=== PATIENT | female | born 1970 | race Hispanic/Latino ===

== ENCOUNTER 2019-11-22 06:23 | Day surgery (SDC) | payer OTHER ==
[2019-11-18 18:43] LABS: BASOPHILS % (AUTO) 0.7 % (0.0-5.0); EOSINOPHILS % (AUTO) 2.7 % (0.0-8.0); HEMATOCRIT 40.9 % (36-48); LYMPHOCYTES % (AUTO) 23.8 % (21.0-51.0); MEAN CORPUSCULAR HEMOGLOBIN 28.6 pg (27.0-33.0); MEAN CORPUSCULAR HGB CONC 31.8 g/dL (32.0-36.0); MEAN CORPUSCULAR VOLUME 90.1 fL (79-99); MONOCYTES % (AUTO) 10.2 % (3.0-13.0); NEUTROPHILS % (AUTO) 62.4 % (40.0-77.0); PLATELET COUNT (AUTO) 232 K/uL (130-400); RED BLOOD CELL COUNT(AUTO) 4.54 MIL/uL (4.00-5.50); RED CELL DISTRIBUTION WIDTH 13.5 % (11.0-15.5); WHITE BLOOD COUNT (AUTO) 8.5 K/uL (4.8-10.8)
[2019-11-18 18:48] VITALS: BP 126/82
[2019-11-18 18:51] LABS: CREATININE 0.6 mg/dL (0.5-1.5); POTASSIUM 3.9 mmol/L (3.5-5.1)
[2019-11-22] VITALS (18 sets, daily range): BP systolic 106–127; BP diastolic 69–85
[~2019-11-22] VITALS: Ht 167.6 cm; Wt 109.8 kg
[~2019-11-22 06:23] MED LIST: LEVO137T2 PO; PROP80TA4 PO
[2019-11-22] MEDS ORDERED: BUPIVACAINE/PF 0.5% 30ML VIAL ONE (07:44)
[2019-11-22] MEDS ORDERED: GLYCOPYRROLATE 1 MG/5 ML SYRINGE ONE (07:50)
[2019-11-22] MEDS ORDERED: LIDOCAINE PF 2% 5ML ABBOJECT ONE ×2 (07:50→07:51)
[2019-11-22] MEDS ORDERED: SUCCINYLCHOLINE 200MG/10ML SYR ONE (07:50)
[2019-11-22] MEDS ORDERED: PROPOFOL 10 MG/ML 20ML VIAL IV ONE ×2 (07:51→09:42)
[2019-11-22] MEDS ORDERED: MIDAZOLAM HCL 1 MG/ML 2ML VIAL ONE (07:51)
[2019-11-22] MEDS ORDERED: FENTANYL CITRATE PF 50 MCG/1 ML 2ML VIAL ONE (07:51)
[2019-11-22] MEDS ORDERED: NEOSTIGMINE 5MG/5ML SYR IV ONE (07:51)
[2019-11-22] MEDS ORDERED: ROCURONIUM 10MG/1ML SYR 10 MG/ML ML ONE (07:51)
[2019-11-22] MEDS ORDERED: LACTATED RINGERS 1000ML 1,000 ML IV SCH (08:00)
[2019-11-22] MEDS: CEFAZOLIN SODIUM 1 GM VIAL IVP ONE ×2 (08:05→08:50)
[2019-11-22] MEDS ORDERED: ONDANSETRON HCL 4 MG/2 ML VIAL ONE (09:36)
== END 2019-11-22 11:55 | disposition home or self-care (01) ==
LOC: DAH 06:23
PROVIDERS: ATTEND Orthopaedic Surgery
DX: S83.231A Complex tear of medial meniscus, current injury, right knee, initial encounter (principal); M22.41 Chondromalacia patellae, right knee; M17.11 Unilateral primary osteoarthritis, right knee; I10 Essential (primary) hypertension; Z79.899 Other long term (current) drug therapy; Z79.2 Long term (current) use of antibiotics; Z72.89 Other problems related to lifestyle; Z98.890 Other specified postprocedural states; X58.XXXA Exposure to other specified factors, initial encounter; Y93.89 Activity, other specified; Y92.89 Other specified places as the place of occurrence of the external cause; Y99.8 Other external cause status; Z82.49 Family history of ischemic heart disease and other diseases of the circulatory system; Z83.3 Family history of diabetes mellitus
CPT/HCPCS: 29881; 36415; 80048; 84703; 85025; A4213; A4215; A4221; A4222; A4223; A4606; A4649 ×3; A4663; A4930 ×3; A5120; A6223; A6260; J0330; J0690; J2001 ×2; J2250; J2405; J2704 ×2; J2710; J3010; J3490 ×2; J7120